=== PATIENT | female | born 1950 | race Caucasian/White ===

== ENCOUNTER 2016-12-22 03:40 | Emergency (ER) | payer BC ==
--- NOTE | 2016-12-22 19:09 | ER ---
ADMIT: 12/22/2016 RM/LOC: ER [facility] MR#: [id number] [facility] [place], [place] [id number] [address] ALEX[address]A [address] [place] [id number] Emergency Room Report SEX: F AGE: 66 : 1950 DATE: 12/22/2016 HISTORY OF PRESENT ILLNESS: The patient is a 66-year-old female with a past medical history of hypertension, schizophrenia, and depression, was brought to the ER with chief complaint of right flank/back pain, which is on the right superior iliac crest, which extends and radiates to the right flank and right lower quadrant. The patient states at the moment, she has no pain in the anterior abdomen and sometimes in the back there is some sharp pain, which is after the pain radiates to the front. The patient denies any trauma or similar symptoms in the past and denies any vomiting, but has some nausea intermittently and also denies any urinary symptoms or vaginal bleeding. The patient had a bowel movement today, which was mildly loose and nonbloody. PHYSICAL EXAMINATION: VITAL SIGNS: Blood pressure was elevated to 160s over 80s, the patient had heart rate of 61, with respiratory rate of 16, and was afebrile. GENERAL: The patient was in no obvious pain or distress in the ER. HEAD and NECK: Negative and normal. CHEST: Clear bilaterally. HEART: Normal heart sounds. ABDOMEN: Completely soft and nontender and no rebound or guarding. There was no CVA tenderness. On deep palpation of the right superior iliac crest, the patient had very mild tenderness. There was no tenderness in the [place] area. The psoas sign and Rovsing sign and obturator were all negative. The rest of the physical exam was negative and noncontributory. EMERGENCY ROOM COURSE: The patient received Zofran for nausea. Also, lab works were all noncontributory and negative. At this stage, musculoskeletal pain, right flank pain are at the top of our differentials. The patient is stable, in no pain or distress and was discharged to home with return precautions, follow up with the primary doctor as needed. Douglas Haque MD/ anahy JOB #: [id number] CC: Douglas Haque MD, Attending Physician Angus Thompson MD, Family Physician
== END 2016-12-22 05:20 | disposition home or self-care (01) ==
LOC: ER 03:40
DX: R10.9 Unspecified abdominal pain (principal); I10 Essential (primary) hypertension; F32.9 Major depressive disorder, single episode, unspecified; F20.9 Schizophrenia, unspecified; Z88.2 Allergy status to sulfonamides; Z98.890 Other specified postprocedural states; Z79.899 Other long term (current) drug therapy; M54.9 Dorsalgia, unspecified